=== PATIENT | female | born 1980 | race African-American/Black ===

== ENCOUNTER 2017-03-15 23:08 | Emergency (ER) | payer OTHER ==
[~2017-03-15] VITALS: Ht 160 cm; Wt 67.6 kg
[~2017-03-15 23:08] MED LIST: CEPHALEXIN500 MG ORAL; NORCO 5-325 TA1 EACH ORAL
[2017-03-15] MEDS ORDERED: NKM (23:23)
[2017-03-16 00:12] VITALS: BP 134/86
--- NOTE | 2017-03-16 00:16 | Emergency Room Report ---
History of Present Illness General Chief Complaint: General Complaint Source: Patient Present Illness HPI Patient presents with complaints of pain to the lateral aspect of her right breast, the pain goes into the axilla and up to the shoulder and trapezius area on the right side Denies any fevers however the patient reports that she feels the area is somewhat warm, denies any swelling denies any trauma Patient's last menstrual cycle was 2 weeks ago Denies any other chest pain or shortness of breath denies any Discharge from the area will Patient's youngest child is 2 years old who was breast fed without any problems , Allergies: Coded Allergies: No Known Allergies (Unverified , 02/24/16) Patient History Past Medical History: see triage record Pertinent Family History: none Last Menstrual Period: 2 weeks ago Now: No Reviewed Nursing Documentation: PMH: Agreed, PSxH: Agreed Nursing Documentation-PMH Past Medical History: No Stated History Review of Systems All Other Systems: negative except mentioned in HPI Physical Exam Vital Signs Date Time Temp Pulse Resp B/P (MAP) Pulse Ox O2 Delivery O2 Flow Rate FiO2 03/15/17 23:17 98.1 57 16 134/86 100 Room Air Sp02 EP Interpretation: reviewed, normal General Appearance: well appearing, no apparent distress Head: normocephalic, atraumatic Eyes: bilateral eye PERRL, bilateral eye EOMI ENT: hearing grossly normal, normal pharynx, TMs + canals normal, uvula midline Neck: full range of motion, supple, no meningismus, no bony tend Respiratory: lungs clear, normal breath sounds, no rhonchi, no respiratory distress, no retraction, no accessory muscle use Cardiovascular #1: normal peripheral pulses, regular rate, rhythm, no edema, no gallop, no JVD, no murmur Gastrointestinal: normal bowel sounds, non tender, soft, no mass, no organomegaly, non-distended, no guarding, no hernia, no pulsatile mass, no rebound Genitourinary: no CVA tenderness Musculoskeletal: other - Patient had discomfort in the palpation of the mid trapezius area on the right side, along with the rhomboids Neurologic: oriented x3, responsive, 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, motor strength/ tone normal, sensory intact Psychiatric: mood/affect normal Skin: normal color, no rash, warm/dry, palpation normal, other - The right breast exam does not reveal any masses, there is no expressible discharge, the axilla does not reveal any adenopathy Lymphatic: normal inspection, no adenopathy Medical Decision Making Diagnostic Impression: Primary Impression: Breast pain in female Additional Impression: Muscle pain ER Course With the lack of any obvious palpable fullness, with the lack of any erythema or other discharge, with the lack of any obvious adenopathy, I do not find any obvious emergency pathology for further examination as far as ultrasound or blood work Patient also seems to have a component of musculoskeletal pathology I feel that the next best that is primary care followup along with possible mammogram as needed And the patient is stable for close outpatient followup Last Vital Signs Date Time Temp Pulse Resp B/P (MAP) Pulse Ox O2 Delivery O2 Flow Rate FiO2 03/15/17 23:17 98.1 57 16 134/86 100 Room Air Status: unchanged Disposition: HOME, SELF-CARE Condition: Stable Additional Instructions: Patient is provided with the discharge instructions notified to follow up with primary doctor in the next 2-3 days otherwise return to the er with any worsening symptoms. Please note that this report is being documented using [employer] technology. This can lead to erroneous entry secondary to incorrect interpretation by the dictating instrument. JESE LOVE D.O. Mar 16, 2017 00:16
[2017-03-16 00:21] VITALS: BP 134/86
== END 2017-03-16 02:10 | disposition home or self-care (01) ==
LOC: EMR 23:35
DX: N64.4 Mastodynia (principal); M79.1 Myalgia
CPT/HCPCS: 99284